=== PATIENT | male | born 1945 | race African-American/Black ===

== ENCOUNTER 2016-08-26 19:18 | Emergency (ER) | payer OTHER ==
[~2016-08-26] VITALS: Ht 175.3 cm; Wt 84.4 kg
--- NOTE | ~2016-08-26 | EKG ---
[address] [address] ELECTROCARDIOGRAM REPORT Name: LINWOOD CASTLE [id number] Admission: 08/26/16 Attend Phys: Discharge: 08/26/16 Date of : 45 Report #: [id number] THIS REPORT FOR: //name// [facility] ED Test Date: 2016-08-26 Test Time: 19:27:47 Pat Name: LINWOOD CASTLE Department: Room: Gender: M [employer]: MOLLY : 1945 Requested By: Radha Irwin Order Number: [id number] MD: Myles Whiting Measurements Intervals [place] Rate: 62 P: 24 MN: 174 QRS: -35 QRSD: 103 T: 91 QT: 444 QTc: 451 Interpretive Statements Sinus rhythm Left ventricular hypertrophy Borderline T abnormalities, lateral leads Compared to ECG 09/19/2011 00:55:05 Left-axis deviation no longer present T-wave abnormality still present Electronically Signed On 08-27-2016 16:21:19 CDT by Myles Whiting [email or web address] <ELECTRONICALLY SIGNED> By: Myles Whiting MD 08/27/16 1621 26 26 Myles Whiting MD /EPI
[~2016-08-26 19:18] MED LIST: ASPIRIN EC81 M1 PO; COZAAR100 MG PO; K-DUR10 MEQ PO; SIMVASTATIN20 MG PO; TOPROL XL100 MG PO; TRIAMTERENE-HC1 EAC1 PO
[2016-08-26] MEDS ORDERED: AMLODIPINE BESYL5 M1 PO (19:28)
[2016-08-26] MEDS ORDERED: PROTONIX40 M4 PO (19:29)
[2016-08-26 21:01] LABS: ABSOLUTE NEUTROPHILS 3.5 thou/uL (1.4-8.2); BASOPHILS 0.6 % (0.0-2.0); EOSINOPHILS 4.7 % (0.0-3.0); HEMATOCRIT 40.5 % (42.0-52.0); HEMOGLOBIN 13.7 gm/dL (14.0-18.0); MCH 28.9 pg (26.0-34.0); MCHC 33.8 g/dL (28.0-37.0); MCV 85.5 fL (80.0-100.0); MONOCYTES 8.6 % (1.0-8.0); PLATELET COUNT 205 thou/uL (150-400); POLYS 59.1 % (36.0-66.0); RBC 4.74 mil/uL (4.50-6.00); RDW 15.4 % (10.5-14.5); WBC 5.9 thou/uL (4.0-11.0)
[2016-08-26 21:03] LABS: MANUAL DIFF NO
[2016-08-26 21:16] LABS: CREATININE 1.7 mg/dL (0.7-1.3); POTASSIUM 4.4 mmol/L (3.5-5.1)
[2016-08-26 21:21] LABS: TROPONIN-I 0.06 ng/mL (<0.04-0.07)
[2016-08-26] MEDS ORDERED: IMDUR 30 MG TAB30 M1 PO (21:59)
== END 2016-08-26 22:22 | disposition home or self-care (01) ==
LOC: ER 19:18
PROVIDERS: Emergency Medicine
DX: R07.89 Other chest pain (principal); I10 Essential (primary) hypertension; E78.00 Pure hypercholesterolemia, unspecified; Z95.5 Presence of coronary angioplasty implant and graft; Z98.890 Other specified postprocedural states